=== PATIENT | male | born 1950 | race Caucasian/White ===

== ENCOUNTER 2021-12-23 07:42 | Observation (INO) ==
--- NOTE | 2021-11-18 15:50 | PAT Medication Instructions ---
Medication Instructions Date of Service November 18, 2021 Home Medications aspirin 81 mg tablet,delayed release 81 mg PO QAM metoprolol tartrate 25 mg tablet 12.5 mg PO BID multivitamin with minerals 1 cap PO QAM simvastatin 40 mg tablet 40 mg PO HS Cbd Pill 15 mg PO BID alpha lipoic acid 600 mg capsule 600 mg PO QAM cyanocobalamin (vitamin B-12) 1,000 mcg tablet (Vitamin B-12) 5,000 mcg PO QAM finasteride 5 mg tablet 5 mg PO QAM STOP taking 2 weeks before surgery (or as soon as possible if surgery is within 2 weeks) alpha lipoic acid 600 mg capsule 600 mg PO QAM DO NOT take the morning of surgery multivitamin with minerals 1 cap PO QAM Cbd Pill 15 mg PO BID cyanocobalamin (vitamin B-12) 1,000 mcg tablet (Vitamin B-12) 5,000 mcg PO QAM Take morning of surgery With a small sip of water, OTHERWISE NOTHING TO EAT OR DRINK AFTER MIDNIGHT: aspirin 81 mg tablet,delayed release 81 mg PO QAM (continue as normal unless told otherwise by surgeon) metoprolol tartrate 25 mg tablet 12.5 mg PO BID finasteride 5 mg tablet 5 mg PO QAM Take evening before surgery metoprolol tartrate 25 mg tablet 12.5 mg PO BID simvastatin 40 mg tablet 40 mg PO HS Cbd Pill 15 mg PO BID Other Notes If you have any questions please call us at [phone] or [phone] or [phone] or [phone]
--- NOTE | 2021-11-23 10:26 | Anesthesiology Consultation ---
Date of Service November 23, 2021 Assessment & Plan (1) Encounter for pre-operative examination: COVID screening: Per assessment on 11/23: No known COVID-19 positive contacts or current COVID-19 related symptoms. Travel screen negative. Patient vaccinated. Surgeon arranging preop COVID testing. Awaiting results. Chart Review Chart Review: Acceptable Risk for Surgery and Patient seen in Pre Admission Testing Teaching & Discussion Pre-Anesthesia Teaching/Discussion Notes: Instructed NPO after midnight before surgery,except medications with 15 cc of water. Medication instructions provided according to the PAT guidelines. History Surgery Operation Date: 12/23/21 12:05 Proposed Procedures p Left Total Knee Arthroplasty - Myke Wilkerson DO Height/Weight Height: 6 ft 2 in Weight: 133.4 kg Allergies Allergy/AdvReac Type Severity Reaction Status Date / Time No Known Allergies Allergy Mild Verified 11/18/21 13:40 Medications Home Medications Medication Instructions Recorded Confirmed Last Taken aspirin 81 mg tablet,delayed 81 mg PO QAM #0 04/20/14 11/18/21 05/03/21 release metoprolol tartrate 25 mg tablet 12.5 mg PO BID #0 tab 04/20/14 11/18/21 05/03/21 multivitamin with minerals 1 cap PO QAM #0 04/20/14 11/18/21 05/03/21 simvastatin 40 mg tablet 40 mg PO HS #0 tab 04/20/14 11/18/21 05/02/21 Cbd Pill 15 mg PO BID 11/18/21 11/18/21 Unknown alpha lipoic acid 600 mg capsule 600 mg PO QAM 11/18/21 11/18/21 Unknown cyanocobalamin (vitamin B-12) 5,000 mcg PO QAM 11/18/21 11/18/21 Unknown 1,000 mcg tablet (Vitamin B-12) finasteride 5 mg tablet 5 mg PO QAM 11/18/21 11/18/21 Unknown Past Medical History Medical History Anxiety BPH (benign prostatic hyperplasia) Dyslipidemia History of COVID-19 08/2021 (> 90 days ago per pt) > self test History of kidney stones Hypertension Neuropathy Bottom of feet r/t previous surgeries Osteoarthritis Exercise / Class Metabolic Activity III < 4 Walking/Shop/Light housework (one FS (no CP, no SOB) > limitations in functional status 2/2 knee pain) Past Family History Family History Daughter Family history of cancer Other Hypertension Stroke Past Surgical History Surgical History History of colonoscopy History of shoulder surgery RIGHT X2 History of total right knee replacement History of urologic surgery BLADDER STONES AND PROSTATE STONES AND REMOVED PART OF PROSTATE JUN 2021 Past Anesthesia History No Hx of Anesthesia Complications and No Family Hx of Anesthesia Complications History of PONV No Hx of PONV and No Hx of Motion Sickness Social History Smoking Status: Never smoker Do You Dip or Chew Tobacco: No Hx Alcohol Use: Yes Alcohol type: beer, wine and hard liquor alcohol intake frequency: 0-2 drinks per day (1-2 drinks/day) substance use type: does not use Review of Systems Patient denies chest pain, shortness of breath, fever, chills, cough, wheezing, palpitations. Physical Exam Vital Signs VITALS BP 155/82 P 49 (patient reports chronic bradycardia on beta bhavik, asymptomatic) TEMP 98.1 SP02 95%RA RESP 16 PHYSICAL Full cervical extension range of motion. Full TMJ range of motion. TMD 3 finger breaths Mallampati Score 2 Dentition: intact Lungs: clear throughout to auscultation Cardiac: bradycardic rate, regular rhythm, no murmurs noted Spine: normal Carotid arteries: negative bruit Extremities: no edema Lab Results Anesthesia Preop Results Results Anesthesia Widget: WBC 7.69 K/uL (4.8-10.8) 11/23/21 Hgb 14.3 g/dL (14.0-18.0) 11/23/21 Hct 42.4 % (42-52) 11/23/21 Plt 262 K/uL (130-400) 11/23/21 Na 140 mmol/L (136-145) 11/23/21 K 4.5 mmol/L (3.5-5.1) 11/23/21 Cl 106 mmol/L (98-107) 11/23/21 CO2 30 mmol/L (21-32) 11/23/21 BUN 17 mg/dl (6-23) 11/23/21 Creat 0.70 mg/dl (0.6-1.4) 11/23/21 Glucose Level 105 mg/dl (70-99(Fasting)) H 11/23/21 PT 10.2 Seconds (9.0-12.0) 11/23/21 PTT 25.1 Seconds (21.0-31.0) 11/23/21 INR 1.0 (0.9-1.1) 11/23/21 HA1c 6.1 % (4.5-5.6) H 11/23/21 Urine Color Dark Yellow 11/23/21 Urine Appearance Cloudy (Clear) A 11/23/21 Urine pH 8.0 (4.5-7.5) H 11/23/21 Urine Specific Wrights 1.018 (1.000-1.030) 11/23/21 Urine Protein Negative (Negative) 11/23/21 Urine Glucose (UA) Negative (Negative) 11/23/21 Urine Ketones Negative (Negative) 11/23/21 Urine Blood Negative (Negative) 11/23/21 Urine Nitrite Negative (Negative) 11/23/21 Urine Bilirubin Negative (Negative) 11/23/21 Urine Urobilinogen Negative (Negative) 11/23/21 Urine Leukocyte Esterase Negative (Negative) 11/23/21 Urine WBC (Auto) 1-5 /hpf (0-5) 11/23/21 Urine RBC (Auto) 0-4 /hpf (0-4) 11/23/21 Urine Hyaline Casts (Auto) 0 /lpf (0-5) 11/23/21 Urine Epithelial Cells (Auto) 0-5 /lpf (0-5) 11/23/21 Urine Bacteria (Auto) Negative (Negative) 11/23/21 Blood Type O Positive 11/23/21 Antibody Screen NEGATIVE 11/23/21 Testing Electrocardiogram Date: 05/22/21 SB at 58bpm. RBBB. Chest X-Ray Date: 05/22/21 Findings: + NAD Stress Test Type: DSE Stress echo is negative for inducible ischemia. LVEF 55-59%. Mildly increased concentric LV wall thickness. Mild MR. 114% MPHR.
--- NOTE | 2021-12-07 10:44 | History & Physical Report ---
Date of Service December 07, 2021 date of surgery: 12/23/21 Procedure: Left Total Knee Arthroplasty Surgeon: Myke Wilkerson Assessment & Plan (1) Arthritis of knee, left: Plan: Risks and benefits of procedure discussed in detail today, patient would like to proceed with a left total knee replacement at [facility] as scheduled. will obtain medical clearance from Dr Simms prior to surgery as well as obtain PATs at [facility]. Will place on ASA 81mg po bid x 1 month post op, f/u 2 weeks post op for routine post-operative care and x-ray, sooner if having any problems. he had done OPPT after his other knee in 2008 and would like to do OPPT at [place] again this time. he does live alone, but states his son lives near by and can assist him. At this point in time, has failed conservative measures and would like to proceed with surgical intervention. The risks and benefits have been discussed including, but not limited to, risk of infection, nerve injury, stiffness, loss of motion, failure to improve, etc. Reasonable outcomes and options of treatment were discussed. An explanation of appropriate alternatives to the procedure that may be advantageous were discussed and their risks and benefits, as well as the risks and benefits of not proceeding with treatment. I offered to answer any additional inquiries concerning the treatment involved. All the patient's questions were answered. The patient is agreeable, understanding of the treatment plan and alternatives, and wishes to proceed with the treatment plan. History of Present Illness Chief Complaint: left knee pain Primary Care Provider: John Simms MD Jona is a 71 year old male who complains of left knee pain, presents for pre- op evaluation prior to a left total knee replacement by Dr Wilkerson at [facility]. He complains of pain, decreased range of motion, instability and stiffness in his left knee. Currently the patient states that the symptoms are moderate-severe and rated as 7/10. The pain is described as aching, sharp and throbbing. His symptoms are aggravated by ascending stairs, daily activities, first steps while awake walking. Prior NSAIDs include IBU and Aleve. He has been treated with previous cortisone injections in the past without much relief. Allergies Allergy/AdvReac Type Severity Reaction Status Date / Time No Known Allergies Allergy Mild Verified 11/18/21 13:40 Home Medications Medication Instructions Recorded Confirmed Type aspirin 81 mg tablet,delayed 81 mg PO QAM #0 04/20/14 11/18/21 History release metoprolol tartrate 25 mg tablet 12.5 mg PO BID #0 tab 04/20/14 11/18/21 History multivitamin with minerals 1 cap PO QAM #0 04/20/14 11/18/21 History simvastatin 40 mg tablet 40 mg PO HS #0 tab 04/20/14 11/18/21 History Cbd Pill 15 mg PO BID 11/18/21 11/18/21 History alpha lipoic acid 600 mg capsule 600 mg PO QAM 11/18/21 11/18/21 History cyanocobalamin (vitamin B-12) 5,000 mcg PO QAM 11/18/21 11/18/21 History 1,000 mcg tablet (Vitamin B-12) finasteride 5 mg tablet 5 mg PO QAM 11/18/21 11/18/21 History Past Med/Surg History Medical History Anxiety BPH (benign prostatic hyperplasia) Dyslipidemia History of COVID-19 08/2021 (> 90 days ago per pt) > self test History of kidney stones Hypertension Neuropathy Bottom of feet r/t previous surgeries Osteoarthritis Surgical History History of colonoscopy History of shoulder surgery RIGHT X2 History of total right knee replacement History of urologic surgery BLADDER STONES AND PROSTATE STONES AND REMOVED PART OF PROSTATE JUN 2021 Family History Daughter Family history of cancer Other Hypertension Stroke Social History Smoking Status: Never smoker Hx Alcohol Use: Yes Alcohol type: beer, wine and hard liquor Preferred Language: Welsh Communication Ability: Effective Press Writer Required: No Beliefs That Will Affect Care: None Current Living Situation: Alone Feels Safe at Home: Yes Assistive Devices: Hearing Aid - Bilateral Review of Systems Review of Systems: All systems reviewed & are unremarkable except as noted in HPI & below Constitutional: no fever, no chills and no sweats Respiratory: no cough and no dyspnea Cardiovascular: no chest pain, no dyspnea and no orthopnea Gastrointestinal: no abdominal pain, no nausea and no vomiting Musculoskeletal: as per Subjective / HPI Physical Exam Physical Exam: HT: 6ft 2in WT: 133.4kg Constitutional: WD/WN, vitals as above no acute distress Respiratory: normal respiratory effort, lungs clear to auscultation no respiratory distress, no labored breathing and does not use accessory muscles Cardiovascular: RRR, no murmur, no edema Gastrointestinal (Abdomen): normal bowel sounds, soft, nontender, no hepatosplenomegaly Musculoskeletal: Knee: + knee abnormal to inspection (left knee: ), + effusion (+1 effusion), + limited ROM of knee (ROM 0/3/110), + knee ROM with crepitation, + joint line tenderness (medial joint line) and + Sridevi's sign positive; no deformity, no skin erythema, no ecchymosis, no valgus laxity, no varus laxity, anterior drawer test negative, Fátima's sign negative and pivot shift test negative Results & Data Results & Data ([facility]) Diagnostic Findings Left Knee X-ray: left knee series confirm advanced degenerative changes to the left knee, greates t medial compartments and patellofemoral joint, showing joint space narrowing, osteophyte formation and subchondral sclerosis. no acute bony pathology noted.
[~2021-12-23 07:42] MED LIST: ACETAMINOPHEN 500 MG TAB PO SCH; BUPIVACAINE 0.25% 30 ML VIAL ONE; BUPIVACAINE 0.5 % 5 MG/1 ML PF 10ML VIAL ONE; CeleBREX 200 MG CAP PO SCH; FAMOTIDINE 20 MG TAB PO SCH; LR 500ML BOLUS, THEN 15ML/HR IV SCH; METOCLOPRAMIDE HCL 10 MG TABLET PO SCH; ROPIVACAINE 0.5% HCL/PF 150 MG, BUPIVACAINE 0.75% MPF 20 ML, EPINEPHrine 30MG/30ML (OR ... INSTIL SCH; TRANEXAMIC ACID 1,000 MG **IV Intra-op IV SCH; TRANEXAMIC ACID 1,000 MG **IV Pre-op IV SCH; ceFAZolin 2000MG 2,000 MG/15 ML SYR IV SCH; dexAMETHasone 4 MG TAB PO SCH; oxyCODONE HCL 10 MG TABCR (OxyCONTIN) PO SCH
[2021-12-23] MEDS: GABAPENTIN 300 MG CAP PO SCH ×2 (08:32→08:41)
--- NOTE | 2021-12-23 08:46 | History & Physical Bridge Note ---
Date of Service December 23, 2021 History & Physical Bridge Note I have examined the patient, reviewed the History & Physical and in the interval since the performance of the History & Physical I have noted the following changes of clinical significance: no changes noted
[2021-12-23] MEDS ORDERED: ATROPINE SULFATE 0.1 MG/ML 10ML SYR IV PRN (09:08)
[2021-12-23] MEDS ORDERED: ePHEDrine sulfate 50 MG/ML AMP IV PRN (09:08)
[2021-12-23] MEDS ORDERED: ONDANSETRON INJ 2 MG/ML 2 ML VIAL IV PRN ×2 (09:08→14:38)
[2021-12-23] MEDS ORDERED: fentaNYL citrate 100 MCG/2 ML VIAL IV PRN (09:08)
[2021-12-23] MEDS ORDERED: fentaNYL citrate 100 MCG/2 ML VIAL ONE (09:09)
[2021-12-23] MEDS ORDERED: MIDAZOLAM HCL 1 MG/ML 2ML VIAL ONE (09:09)
[2021-12-23] MEDS ORDERED: ORTHO JOINT ANESTHETIC ONE (10:30)
[2021-12-23] MEDS ORDERED: ONDANSETRON INJ 2 MG/ML 2 ML VIAL ONE (11:25)
[2021-12-23] MEDS ORDERED: PROPOFOL IV EMULSION 10 MG/ML 20 ML VIAL IV ONE ×2 (11:25→12:01)
--- NOTE | 2021-12-23 12:29 | Operative Report ---
Post Operative Report Pre & Post Diagnosis Operation Date: 12/23/21 10:30 Pre-Op Diagnosis: Left Knee Osteoarthritis Post-Op Diagnosis: Left Knee Osteoarthritis I identified the patient and participated in the time-out.: Yes Procedure Operation Date: 12/23/21 10:30 Actual Procedures p Left Total Knee Arthroplasty(Left) utilizing [employer] persona size femur 12 tibia each polyeighteen medial constrained patella 34 oval Myke Wilkerson DO Surgeon Myke Wilkerson DO School Business Manager TOMMIE Raygoza Estimated Blood Loss 5 Findings Consistent with Post-Op Diagnosis Patient presents with severe end-stage tricompartmental degenerative joint disease left knee varus alignment eburnated [id number] marginal osteophytes subchondral sclerosis with subchondral cystic changes and moderate to large effusion Specimens Bone and cartilage Drains Medium bore Hemovac Anesthesia Type MAC Spinal Regional Complications none Disposition Accompanied Patient To Recovery: No Disposition: Recovery Room Indications Patient presents with ongoing complaints of pain about the left knee no response to conservative management occluding physical therapy anti-inflammatories relative rest activity modification corticosteroid injection viscosupplementation the above intraoperative findings were noted Description of Procedure After proper prepping and draping of the left lower extremity anterior midline incision was made over the region of the extensor extensor mechanism after meticulous hemostasis was obtained and maintained in subcutaneous tissues a medial parapatellar incision was made The patella was subluxed lateralward the medial lateral gutter were cleaned from any hypertrophic synovitis and scar tissue of the distal femoral block was placed and the distal femoral osteotomy cut was made subsequently the chamfers anterior and posterior osteotomy cuts were made utilizing the 4-in-1 block the tibia was subsequently subluxed anteriorward medial and ateral meniscal remnants were excised in their entirety remnants of the anterior and posterior cruciate ligaments were excised in their entirety excellent exposure of the proximal tibia was obtained the tibial osteotomy guide was placed on the proximal tibial osteotomy cut was made once again the knee was irrigated with copious amounts of sterile saline solution the patella was subsequently everted lateralward thickened scar tissue around the patella was removed the patella was subsequently cut utilizing a freehand technique and was drilled prepared for final preparation and placement of patella socially flexion-extension gaps were checked and the equal and symmetric trials were placed to the appropriate femoral and tibial trials with poly-spacer being placed for equal flexion and extension gaps and full range of motion including extension to 0 and flexion to 140 the trial components after having been taken to recovery range of motion was subsequently removed meticulous hemostasis was obtained and maintained subsequently a knee block injection of joint cocktail including ropivacaine 0.5% 150 mg. Bupivacaine 0.5% epinephrine 1-200,030 mL's toradol 30 mg dexamethasone 4 mg ketamine 10 mg clonidine 100 micrograms normal saline solution 30 mg was infiltrated into the soft tissues of the posterior knee medial lateral gutters and periosteal synovium special attention was paid to protect neurovascular structures at all times subsequently trial components having been removed the knee was irrigated with sterile saline solution. debris was removed the proximal tibia was subsequently prepared and was made ready for the placement of the tibial component tibial component was also cemented and tamped into position the femoral component was subsequently placed and cemented in the position the patellar component was subsequently cemented in position because hemostasis once again obtained and maintained wound having been thoroughly irrigated with debridement and debridement lavage was performed as well as a medial parapatellar incision closed with #1 Vicryl in interrupted fashion subcutaneous was closed with #2 Vicryl skin was closed with skin clips. PA-C was necessary for prepping and drapping as well as wound closure of deep fascia Sub cutaneous tissue and skin and was necessary for the case. A sterile compressive dressing was placed patient was taken to recovery in stable condition of report dictated by Rock I attest to the content of the Intraoperative Record and any orders documented therein. Any exceptions are noted below.Due to the complex nature of the procedure, the entire surgery was performed with the operational assistance of TOMMIE Raygoza. The carpenter assistant installer, under direct supervision, was involved in the actual performance of all aspects of the surgical procedure including hemostasis, tissue retraction and incision, instrument management, patient positioning, and wound closure. I attest to the content of the Intraoperative Record and any orders documented therein. Any exceptions are noted below.
--- NOTE | 2021-12-23 14:11 | Anesthesiology Progress Note ---
Date of Service December 23, 2021 Anesthesia Post Procedure Vital Signs Vital Signs: Temp Pulse Pulse Resp BP Pulse Ox 12/23/21 13:50 49 L 12 102/65 95 12/23/21 13:40 49 L 14 115/65 95 12/23/21 13:30 48 L 17 112/63 94 12/23/21 13:20 53 L 23 118/63 90 12/23/21 13:10 51 L 20 101/71 94 12/23/21 13:04 36.2 C L 71 19 121/72 96 12/23/21 08:19 36.5 C 47 L 18 159/91 H 95 Transfer of Care Handoff Completed per policy Notes Mental Status: alert / awake / arousable and participated in evaluation Patient Amnestic to Procedure: Yes Nausea / Vomiting: adequately controlled Pain: adequately controlled Airway Patency, RR, SpO2: stable & adequate BP & HR: stable & adequate Hydration State: stable & adequate Neuraxial Anesthesia: was administered and sensory block is resolving Anesthetic Complications: no major complications apparent and Pt Satisfied with anesthetic care
--- NOTE | 2021-12-23 14:26 | XRay Report ---
XR knee LT 1 or 2V routine CLINICAL HISTORY: Surgical Post Op. Status post total knee replacement COMPARISON STUDY: No previous studies for comparison. TECHNIQUE: 2 left knee views FINDINGS: The patient is status post total knee replacement. The prosthetic components are in anatomi c alignment with no acute abnormality seen. Air is present within the soft tissues from the procedure . IMPRESSION: 1. Status post total knee replacement. ACT 112: Negative or not required by law. Electronically signed by: Amos Ferguson M.D. 12/23/2021 2:23 PM
[2021-12-23] MEDS ORDERED: bisacodyL 10 MG SUPP PR PRN (14:38)
[2021-12-23] MEDS ORDERED: METOCLOPRAMIDE HCL INJ 5 MG/ML 2 ML VIAL IV PRN (14:38)
[2021-12-23] MEDS ORDERED: oxyCODONE HCL IR 5 MG TAB (IMMEDIATE RELEASE) PO PRN (14:38)
[2021-12-23] MEDS ORDERED: MAGNESIUM HYDROXIDE SUSP 30 ML UDC PO PRN (14:38)
[2021-12-23] MEDS ORDERED: diphenhydrAMINE Capsule 25 MG CAP PO PRN (14:38)
[2021-12-23] MEDS ORDERED: HYDROmorphone INJ 1 MG/ML SYRINGE IV PRN (14:38)
[2021-12-23] MEDS ORDERED: NALOXONE HCL 0.4 MG/1 ML VIAL/CARP IV PRN (14:38)
[2021-12-23] MEDS: KETOROLAC TROMETHAMINE 15 MG/ML VIAL IV SCH ×2 (16:30→21:17)
[2021-12-23] MEDS: ACETAMINOPHEN 500 MG TAB PO SCH ×2 (16:31→21:16)
[2021-12-23] MEDS: SODIUM CHLORIDE 0.9% 1000ML 1,000 ML IV SCH (16:31)
--- NOTE | 2021-12-23 17:01 | Consultation ---
Date of Consultation December 23, 2021 Assessment & Plan (1) Arthritis of knee, left: (2) Hypertension: (3) Dyslipidemia: Left knee arthritis Status post left total knee arthroplasty by Dr. Wilkerson, POD#0 EBL 5ml tolerated procedure well Pain/wound management per orthopedics Activity and therapy as directed by orthopedics Encourage incentive spirometry, monitor hemoglobin HTN BP controlled on metoprolol, currently 118 systolic HLD Continue statin T2DM A1c 6.5 preoperatively Encourage lifestyle and diet modifications Monitor fasting blood sugar BPH Continue finasteride DVT prophylaxis: ASA twice daily per orthopedics Full code PCP: Demi Dispo: per primary Patient was seen and evaluated in collaboration with, Dr. Bunch, please see addendum Thank you for this consultation. We will follow the patient with you during their hospital stay. You can reach a member of the [facility] Hospitalist Team 28/02 via hospitalist role on tiger text. Supervising Physician Co-Signing Physician Notes Patient seen and examined History notable for 71year old man with hypertension, prediabetes, BPH who had elective left TKA today. Patient reports no pain at this time. Exam is only notable for dressing around Left knee with drain in situ. Check CBC in AM Continue home metoprolol, finasteride, simvastatin Defer pain control and DVT ppx to Primary Surgical team Agree with other plans as detailed by Farrah Valdovinos PA-C History of Present Illness Requesting Physician: Dr. Wilkerson Reason for Consultation: Postop medical management Attending Physician: Myke Wilkerson DO History of Present Illness This is a 71-year-old male who has significant past medical history of HTN, HLD, incomplete right bundle branch block, BPH, prediabetes who presents for elective left total knee arthroplasty. He tolerated the procedure well and had EBL of 5 mL. Currently he states, "I feel great." He states he had his right knee replaced back in 2008 so he, "knows the drill." Postoperatively he denies any fever, chills, sweats, lightheadedness, dizziness, chest pain, shortness of breath, nausea, vomiting, abdominal pain, changes bowel or urinary habits. He has since been able to urinate. He tolerated a turkey sandwich for lunch. He does have history of hypertension for which he takes metoprolol twice daily for. His last dose was this morning. He did have an elevated blood pressure around 1510 today at 164/70. During my evaluation it is systolically 118. During preop evaluation he did have an A1c on 11/23/2021 which revealed an A1c of 6.5. He also is history of hyperlipidemia controlled on statin therapy. Preop testing was reviewed and it does appear patient underwent a dobutamine stress echo on 09/06/2019 which revealed an EF of 55 to 59%, mild mitral regurg, negative for inducible ischemia. Allergies Allergy/AdvReac Type Severity Reaction Status Date / Time No Known Allergies Allergy Mild Verified 12/23/21 08:12 Home Medications Medication Instructions Recorded Confirmed Type aspirin 81 mg tablet,delayed 81 mg PO QAM #0 04/20/14 12/23/21 History release metoprolol tartrate 25 mg tablet 12.5 mg PO BID #0 tab 04/20/14 12/23/21 History multivitamin with minerals 1 cap PO QAM #0 04/20/14 12/23/21 History simvastatin 40 mg tablet 40 mg PO HS #0 tab 04/20/14 12/23/21 History Cbd Pill 15 mg PO BID 11/18/21 12/23/21 History alpha lipoic acid 600 mg capsule 600 mg PO QAM 11/18/21 12/23/21 History cyanocobalamin (vitamin B-12) 5,000 mcg PO QAM 11/18/21 12/23/21 History 1,000 mcg tablet (Vitamin B-12) finasteride 5 mg tablet (Proscar) 5 mg PO QAM 11/18/21 12/23/21 History acetaminophen 500 mg tablet 1,000 mg PO Q8 21 Days #126 tab 12/23/21 Rx (Tylenol Extra Strength) aspirin 81 mg tablet,delayed 81 mg PO BID 30 Days #60 tab 12/23/21 Rx release cefadroxil 500 mg capsule 500 mg PO BID 14 Days #28 cap 12/23/21 Rx celecoxib 200 mg capsule (Celebrex) 200 mg PO BID 30 Days #60 cap 12/23/21 Rx docusate sodium 100 mg capsule 100 mg PO BID 10 Days #20 cap 12/23/21 Rx oxycodone 5 mg tablet 5 - 10 mg PO Q6H PRN #30 tab 12/23/21 Rx Patient History Medical History (Updated 12/23/21 @ 17:13 by Farrah Valdovinos PA-C) Anxiety BPH (benign prostatic hyperplasia) Dyslipidemia History of COVID-19 08/2021 (> 90 days ago per pt) > self test History of kidney stones Hypertension Neuropathy Bottom of feet r/t previous surgeries Osteoarthritis Surgical History History of colonoscopy History of shoulder surgery RIGHT X2 History of total right knee replacement History of urologic surgery BLADDER STONES AND PROSTATE STONES AND REMOVED PART OF PROSTATE JUN 2021 Family History Daughter Family history of cancer Other Hypertension Stroke Social History Smoking Status: Never smoker Do You Dip or Chew Tobacco: No; Hx Alcohol Use: Yes Alcohol type: beer, wine and hard liquor Preferred Language: Greenlandic Communication Ability: Effective Diesel Engineer Required: No Beliefs That Will Affect Care: None marital status: / Current Living Situation: Alone How many Children do You have: 1 Other Information That Helps Us Care for You: No Feels Safe at Home: Yes Assistive Devices: None Review of Systems Review of Systems: All systems reviewed & are unremarkable except as noted in HPI & below Physical Exam Physical Exam: Constitutional: WD/WN, M, vitals as above, NAD, sitting up in bed, pleasant, conversing easily Head: Normocephalic, Atraumatic Eyes: PERRL, conjunctivae normal, anicteric sclerae ENMT: external ear and nose normal, oropharynx normal Neck: trachea midline, no thyromegaly normal visual inspection Respiratory: normal respiratory effort, lungs clear to auscultation, no wheeze, rales, rhonchi. Normal insp/exp effort, no accessory muscle use Cardiovascular: RRR, no murmur, no edema Vessels: no JVD or carotid bruit Chest: normal inspection of chest Abdomen: normal bowel sounds, soft, nontender, no hepatosplenomegaly Musculoskeletal: no cyanosis or clubbing, AROm x4, L TKA dressing CDI, NVI distally, hemovac in place Skin: no rashes, warm and dry normal turgor Neurologic: PERRL, EOMI, accommodation nl, no face palsy, no dysarthria CN's II-XI intact bilaterally and moves all extremities Psychiatric: A+Ox3, euthymic affect Lymphatic: no cervical or axillary lymphadenopathy : deferred Results & Data ([facility]) Vital Signs (Past 12 Hours) Vital Signs Temp Pulse Pulse Resp BP Pulse Ox 12/23/21 15:10 58 L 24 164/70 H 96 12/23/21 14:55 65 21 118/74 95 12/23/21 14:40 58 L 18 132/61 95 12/23/21 14:25 74 18 116/64 94 12/23/21 14:10 36.3 C L 52 L 23 109/61 96 12/23/21 14:00 49 L 13 105/61 95 12/23/21 13:50 49 L 12 102/65 95 12/23/21 13:40 49 L 14 115/65 95 12/23/21 13:30 48 L 17 112/63 94 12/23/21 13:20 53 L 23 118/63 90 12/23/21 13:10 51 L 20 101/71 94 12/23/21 13:04 36.2 C L 71 19 121/72 96 12/23/21 08:19 36.5 C 47 L 18 159/91 H 95 Laboratory Results Preoperative lab work on 11/23/2021 A1c 6.1 WBC 7.69 H&H 14.3 and 42.4 Platelet 262 Creatinine 0.7 Diagnostic Findings Knee X-Ray 12/23/21 13:07 XR knee LT 1 or 2V routine CLINICAL HISTORY: Surgical Post Op. Status post total knee replacement COMPARISON STUDY: No previous studies for comparison. TECHNIQUE: 2 left knee views FINDINGS: The patient is status post total knee replacement. The prosthetic components are in anatomic alignment with no acute abnormality seen. Air is present within the soft tissues from the procedure. IMPRESSION: 1. Status post total knee replacement. ACT 112: Negative or not required by law. Electronically signed by: Amos Ferguson M.D. 12/23/2021 2:23 PM Preoperative chest x-ray on 05/22/2021 no acute cardiopulmonary process Medications Administered Current Inpatient Medications Acetaminophen (Acetaminophen 500 Mg Tab) 1,000 mg PO Q8 [place] Stop: 01/22/22 15:14 Last Admin: 12/23/21 16:31 Dose: 1,000 mg Documented by: Aspirin (Aspirin 81 Mg Ectab) 81 mg PO BID [facility] Stop: 01/22/22 20:59 Bisacodyl (Bisacodyl 10 Mg Supp) 10 mg NM DAILY PRN PRN Reason: Constipation Stop: 01/22/22 14:37 Celecoxib (Celebrex 200 Mg Cap) 200 mg PO BID [facility] Stop: 01/23/22 20:59 Cyanocobalamin (Cyanocobalamin (B-12) 2,500 Mcg Tablet) 5,000 mcg SL QAM [facility] Stop: 01/23/22 08:59 Diphenhydramine HCl (Diphenhydramine Capsule 25 Mg Cap) 25 mg PO Q8H PRN PRN Reason: Itching Stop: 01/22/22 14:37 Docusate Sodium (Docusate Sodium 100 Mg Cap) 100 mg PO BID [facility] Stop: 01/22/22 20:59 Finasteride (Finasteride 5 Mg Tab) 5 mg PO QAM [facility] Stop: 01/23/22 08:59 Hydromorphone HCl (Hydromorphone Inj 1 Mg/Ml Syringe) 1 mg IV Q4H PRN PRN Reason: Pain Stop: 01/06/22 14:37 Sodium Chloride (Nss 1000ml) 1,000 mls @ 100 mls/hr IV .Q10H [facility] Stop: 12/24/21 06:00 Last Admin: 12/23/21 16:31 Dose: 100 mls/hr Documented by: Cefazolin Sodium (Ancef 2000mg) 2,000 mg in 15 mls @ 3.75 mls/min IV Q8H [facility]; Protocol Stop: 12/24/21 03:18 Ketorolac Tromethamine (Ketorolac Tromethamine 15 Mg/Ml Vial) 15 mg IV Q6H [facility] Stop: 12/24/21 10:01 Last Admin: 12/23/21 16:30 Dose: 15 mg Documented by: Magnesium Hydroxide (Magnesium Hydroxide Susp 30 Ml Udc) 30 ml PO Q6H PRN PRN Reason: Constipation Stop: 01/22/22 14:37 Metoclopramide HCl (Metoclopramide Hcl Inj 5 Mg/Ml 2 Ml Vial) 10 mg IV Q6H PRN PRN Reason: Nausea And Vomiting Stop: 01/22/22 14:37 Metoprolol Tartrate (Metoprolol Tartrate 25 Mg Tab) 12.5 mg PO BID [facility] Stop: 01/22/22 20:59 Multivitamins (Multivitamin Tab) 1 tab PO QAM [place] Stop: 01/23/22 08:59 Naloxone HCl (Naloxone Hcl 0.4 Mg/1 Ml Vial/Carp) 0.1 mg IV Q5M PRN PRN Reason: Oversedation/Resp Depression Stop: 01/22/22 14:37 Ondansetron HCl (Ondansetron Inj 2 Mg/Ml 2 Ml Vial) 4 mg IV Q6H PRN PRN Reason: Nausea And Vomiting Stop: 01/22/22 14:37 Oxycodone HCl (Oxycodone Hcl Ir 5 Mg Tab (Immediate Release)) 5 - 10 mg PO Q4H PRN PRN Reason: Pain or Pre PT Stop: 01/06/22 14:37 Sennosides (Senna 8.6 Mg Tab) 17.2 mg PO HS [facility] Stop: 01/22/22 20:59 Simvastatin (Simvastatin 40 Mg Tab) 40 mg PO HS [facility] Stop: 01/22/22 20:59 ECG Rate (beats per minute): 58 Rhythm: sinus bradycardia Findings: + RBBB
[2021-12-23] MEDS: METOPROLOL TARTRATE 25 MG TAB PO SCH (20:08)
[2021-12-23] MEDS: ceFAZolin 2000MG 2,000 MG/15 ML SYR IV SCH (20:09)
[2021-12-23] MEDS: ASPIRIN 81 MG ECTAB PO SCH (20:11)
[2021-12-23] MEDS: DOCUSATE SODIUM 100 MG CAP PO SCH (20:12)
[2021-12-23] MEDS ORDERED: SENNA 8.6 MG TAB PO SCH (21:00)
[2021-12-23] MEDS ORDERED: SIMVASTATIN 40 MG TAB PO SCH (21:00)
[2021-12-24] MEDS: SODIUM CHLORIDE 0.9% 1000ML 1,000 ML IV SCH (02:06)
[2021-12-24] MEDS: KETOROLAC TROMETHAMINE 15 MG/ML VIAL IV SCH ×2 (03:00→11:01)
[2021-12-24] MEDS: ceFAZolin 2000MG 2,000 MG/15 ML SYR IV SCH (03:06)
[2021-12-24] MEDS: ACETAMINOPHEN 500 MG TAB PO SCH (05:08)
--- NOTE | 2021-12-24 07:26 | Orthopedic Progress Note ---
Date of Service December 24, 2021 Assessment & Plan (1) History of total left knee replacement: Plan: POD #1 s/p Left TKA pt/ot dvt proph with DWAINE/SCD/ASA plan for d/c home with OPPT Admission and Anticipated Discharge Date Admission Date: December 23, 2021 Subjective POD #1 s/p Left TKA Review of Systems Constitutional: no fever, no chills and no sweats Respiratory: no cough and no dyspnea Cardiovascular: no chest pain and no dyspnea Gastrointestinal: no abdominal pain, no nausea and no vomiting Physical Exam Physical Exam: Vital Signs Temp Pulse Pulse Resp BP Pulse Ox 12/24/21 03:00 36.6 C 48 L 16 131/66 93 12/23/21 22:39 36.6 C 59 L 16 135/79 95 12/23/21 20:04 53 L 136/71 12/23/21 18:10 36.4 C L 61 18 123/73 93 12/23/21 17:08 53 L 16 124/71 93 12/23/21 16:10 36.5 C 57 L 16 116/76 93 12/23/21 15:10 58 L 24 164/70 H 96 12/23/21 14:55 65 21 118/74 95 12/23/21 14:40 58 L 18 132/61 95 12/23/21 14:25 74 18 116/64 94 12/23/21 14:10 36.3 C L 52 L 23 109/61 96 12/23/21 14:00 49 L 13 105/61 95 12/23/21 13:50 49 L 12 102/65 95 12/23/21 13:40 49 L 14 115/65 95 12/23/21 13:30 48 L 17 112/63 94 12/23/21 13:20 53 L 23 118/63 90 12/23/21 13:10 51 L 20 101/71 94 12/23/21 13:04 36.2 C L 71 19 121/72 96 12/23/21 08:19 36.5 C 47 L 18 159/91 H 95 Intake and Output 12/23/21 12/24/21 12/24/21 22:59 06:59 14:59 Intake Total 100 / 2558.333 958.333 / 2558.333 Output Total 50 / 525 450 / 525 Balance 50 / 2032.333 508.333 / 2032. Intake: IV 100 / 1158.333 958.333 / 1158.333 Sodium Chlorid e 0.9% 1000ML 1, 958.333 / 958.333 000 ml @ 100 m ls/hr IV .Q10H [facility] Rx#:[id number] Tranexamic Aci d / 0.7% NaCl 1, 100 / 100 000 mg In 100 ml @ 600 mls/hr IV TODAY@0600 [facility] Rx#:[id number] Output: Urine 400 / 400 Drain Output 50 / 120 50 / 120 Left Knee Hemo vac 50 / 120 50 / 120 Musculoskeletal: Left Leg: NVDI, calf SNT, negative estefani sign. DP palpable, able to wiggle toes/ankle movement without difficulty. dressing clean dry and intact. Results & Data ([facility]) Vital Signs (Past 12 Hours) Vital Signs Temp Pulse Resp BP Pulse Ox 12/24/21 03:00 36.6 C 48 L 16 131/66 93 12/23/21 22:39 36.6 C 59 L 16 135/79 95 12/23/21 20:04 53 L 136/71 Laboratory Results Laboratory Results SARS-CoV-2, RNA, NAAT NEGATIVE (NEGATIVE) 12/23/21 07:58 Impressions Knee X-Ray 12/23/21 13:07 XR knee LT 1 or 2V routine CLINICAL HISTORY: Surgical Post Op. Status post total knee replacement COMPARISON STUDY: No previous studies for comparison. TECHNIQUE: 2 left knee views FINDINGS: The patient is status post total knee replacement. The prosthetic components are in anatomic alignment with no acute abnormality seen. Air is present within the soft tissues from the procedure. IMPRESSION: 1. Status post total knee replacement. ACT 112: Negative or not required by law. Electronically signed by: Amos Ferguson M.D. 12/23/2021 2:23 PM
--- NOTE | 2021-12-24 07:38 | Discharge Summary ---
Date of Service date of discharge: December 24, 2021 date of admission: 12/23/21 Admission HPI Per Admitting Provider Jona is a 71 year old male who complains of left knee pain, presents for pre-op evaluation prior to a left total knee replacement by Dr Wilkerson at [facility]. He complains of pain, decreased range of motion, instability and stiffness in his left knee. Currently the patient states that the symptoms are moderate-severe and rated as 7/10. The pain is described as aching, sharp and throbbing. His symptoms are aggravated by ascending stairs, daily activities, first steps while awake walking. Prior NSAIDs include IBU and Aleve. He has been treated with previous cortisone injections in the past without much relief. Principal Diagnosis left knee arthritis Discharge Exam Vital Signs Temp Pulse Pulse Resp BP Pulse Ox 12/24/21 03:00 36.6 C 48 L 16 131/66 93 12/23/21 22:39 36.6 C 59 L 16 135/79 95 12/23/21 20:04 53 L 136/71 12/23/21 18:10 36.4 C L 61 18 123/73 93 12/23/21 17:08 53 L 16 124/71 93 12/23/21 16:10 36.5 C 57 L 16 116/76 93 12/23/21 15:10 58 L 24 164/70 H 96 12/23/21 14:55 65 21 118/74 95 12/23/21 14:40 58 L 18 132/61 95 12/23/21 14:25 74 18 116/64 94 12/23/21 14:10 36.3 C L 52 L 23 109/61 96 12/23/21 14:00 49 L 13 105/61 95 12/23/21 13:50 49 L 12 102/65 95 12/23/21 13:40 49 L 14 115/65 95 12/23/21 13:30 48 L 17 112/63 94 12/23/21 13:20 53 L 23 118/63 90 12/23/21 13:10 51 L 20 101/71 94 12/23/21 13:04 36.2 C L 71 19 121/72 96 12/23/21 08:19 36.5 C 47 L 18 159/91 H 95 Intake and Output 12/23/21 12/24/21 12/24/21 22:59 06:59 14:59 Intake Total 100 / 2558.333 958.333 / 2558.333 Output Total 50 / 525 450 / 525 Balance 50 / 3.333 508.333 / 3.333 Intake: IV 100 / 1158.333 958.333 / 1158.333 Sodium Chloride 0.9% 1000ML 1, 958.333 / 958.333 000 ml @ 100 mls/hr IV .Q10H [facility] Rx#:[id number] Tranexamic Acid / 0.7% NaCl 1, 100 / 100 000 mg In 100 ml @ 600 mls/hr IV TODAY@0600 [facility] Rx#:[id number] Output: Urine 400 / 400 Drain Output 50 / 120 50 / 120 Left Knee Hemovac 50 / 120 50 / 120 Constitutional WD/WN, vitals as above no acute distress Respiratory normal respiratory effort, lungs clear to auscultation no respiratory distress, no labored breathing and does not use accessory muscles Cardiovascular RRR, no murmur, no edema Gastrointestinal (Abdomen) normal bowel sounds, soft, nontender, no hepatosplenomegaly Musculoskeletal left knee: NVDI, calf SNT, negative estefani sign. DP palpable, able to wiggle toes/ankle movement without difficulty. GILDA dressing clean dry and intact Discharge Data Allergies Allergy/AdvReac Type Severity Reaction Status Date / Time No Known Allergies Allergy Mild Verified 12/23/21 08:12 Consultations 12/18/21 15:57 Consult Hospitalist Routine Procedures Performed Operation Date: 12/23/21 10:30 Actual Procedures p Left Total Knee Arthroplasty(Left) - Myke Wilkerson DO Ordered Studies 12/23/21 05:00 US - OR guided needle placemen Routine Hospital Course (1) History of total left knee replacement: POD #1 s/p Left TKA pt/ot dvt proph with DWAINE/SCD/ASA plan for d/c home with OPPT Total Time Total Time Spent Total Time Spent (In Minutes): 20 Discharge Plan Discharge Items Patient Disposition: Home - Self-Care Reason For Visit: Left Knee Osteoarthritis Discharge Diagnosis: LEFT TOTAL KNEE REPLACEMENT Activity: Per Instructions section Lifting: Wait until after follow-up appointment Weightbearing Comment: WBAT WITH WALKER Non-emergency contact: Surgeon Call non-emergency contact if: you have any medication questions, your temperature is above 101, your wound has increased redness, your wound has increased drainage and your wound pain has increased Follow-up/Referrals: John Simms MD [Primary Care Provider] - Diet: Regular Addtl Attending Provider Instructions: ACTIVITY RECOMMENDATIONS: SELF CARE INSTRUCTIONS AFTER TOTAL KNEE REPLACEMENT A. You may need to continue a physical therapy program after discharge from the hospital. There are several options available to you. Your doctor will assist you in selecting the best one for you. 1. An out-patient facility 2 to 3 times a week for therapy or home therapy. 2. Continue working on all exercises taught to you in the hospital. Your goals should be to increase bending of your knee to 90 degrees and beyond and to fully straighten your knee. B. You may progress at your own pace from walking with a walker or crutches to a cane; then to no assistive devices. C. Make walking a part of your daily routine. Be up as much as comfortable with rest periods throughout the day. Rest with leg elevation is very important. Use the ice wrap frequently for the first 3-4 weeks. D. There are no restrictions on activities. You may ride in a car, shop, participate in salesperson men's hats and all social activities. E. Wear the long elastic stockings (DWAINE hose) 20 hours a day for 2 weeks after surgery. They can be removed several times a day for laundering and for a bath. F. You may shower, no tub baths until cleared by your doctor. SPECIAL CARE INSTRUCTIONS: VERY IMPORTANT TO READ AND REVIEW A. There are a few signs you need to watch for after you are home. Call [facility] if you notice any of the followin. Increased severe knee pain. Some pain is expected especially when you exercise. 2. Increased swelling in your leg or knee; pain or swelling of the calf muscle in either lower leg. 3. Any fluid drainage from the incision. 4. Shortness of breath or chest pain. B. Please call [facility] at if you have any concerns or questions about your operation or recovery. The doctor or his nurse will return your call promptly. C. You must take antibiotics before dental work, bladder, bowel or other surgery. Your doctor will provide you with a permanent care to carry describing this precaution. IMPORTANT: * REMEMBER TO TAKE ASPIRIN, 81 MG, TWICE DAILY FOR 4 WEEKS UNLESS OTHERWISE DIRECTED. THIS IS YOUR BLOOD THINNER. * HIGH RISK PATIENTS MAY BE PRESCRIBED A STRONGER BLOOD THINNER. THIS WILL BE PROVIDED AT DISCHARGE. * CALL IF INCREASED PAIN, REDNESS, DRAINAGE OR FEVER GREATER THAT 101. * WEAR DWAINE HOSE 20 HOURS PER DAY FOR 2 WEEKS. * GILDA Dressing- This is a large suction dressing covering your incision. This will help pull any excess drainage from the wound and allow your incision to heal properly. You may shower with this if you can keep the unit outside of the shower. If any bleeding or leakage is noted please call your doctor's office. This will remain on your incision for 7 days and then should be removed . This can be done yourself or by the home nursing staff if applicable. The entire unit is disposable once removed. Once removed, keep incision clean and dry. If redness or drainage is noted, please call your surgeon. DERMABOND Prineo- This is a mesh tape dressing that is covered with glue. It should remain in place until the incision is properly healed, usually 10-14 days. This dressing is designed to naturally slough off. You may trim the excess mesh tape as it peels off. Incision may be briefly wet in a shower. Dry immediately by blotting with a clean, dry towel. Do not bath or swim until instructed by your doctor. Do not scratch, rub, or pick at the dressing. Do not apply any topical ointments or lotions until dressing is completely removed and/or instructed by your doctor. There may be a small piece of suture material at one end of your incision. Do not pull or trim this. If it is bothersome or catching on clothing, you may cover it with a band-aid. IF INCISION IS LEAKING THROUGH DRESSING, CALL THE OFFICE . FOLLOW UP VISIT: If appointment is not already scheduled: Please call [facility] to make a follow-up appointment for 2 weeks after your surgery at . Pending Studies at Discharge: No Stand-Alone Forms: My [employer], Smoking Cessation Medications and DC Order Prescriptions: New celecoxib [Celebrex] 200 mg Capsule 200 mg PO BID 30 Days Qty: 60 RF: 0 aspirin 81 mg Tablet,Delayed Release (Dr/Ec) 81 mg PO BID 30 Days Qty: 60 RF: 0 acetaminophen [Tylenol Extra Strength] 500 mg Tablet 1,000 mg PO Q8 21 Days Qty: 126 RF: 0 oxycodone 5 mg Tablet 5 - 10 mg PO Q6H PRN (Reason: pain) Qty: 30 RF: 0 docusate sodium 100 mg Capsule 100 mg PO BID 10 Days Qty: 20 RF: 0 cefadroxil 500 mg capsule 500 mg PO BID 14 Days Qty: 28 RF: 0 Continued simvastatin 40 mg Tablet 40 mg PO HS Qty: 0 RF: 0 multivitamin with minerals Capsule 1 cap PO QAM Qty: 0 RF: 0 metoprolol tartrate 25 mg Tablet 12.5 mg PO BID Qty: 0 RF: 0 cyanocobalamin (vitamin B-12) [Vitamin B-12] 1,000 mcg Tablet 5,000 mcg PO QAM RF: 0 finasteride [Proscar] 5 mg Tablet 5 mg PO QAM RF: 0 alpha lipoic acid 600 mg Capsule 600 mg PO QAM RF: 0 Cbd Pill 15 mg PO BID RF: 0 Discontinued aspirin [Aspir-81] 81 mg Tablet,Delayed Release (Dr/Ec) 81 mg PO QAM Qty: 0 RF: 0 Discharge Orders: Discharge Order (Routine); Ordered 12/24/21 Ordered By: Juan Gray Admission Data Admit Date/Time: 12/23/21 13:07 Attending Provider: Myke Wilkerson Admit Provider: Myke Wilkerson Primary Care Provider: John Simms Other Providers: Sabino Andrews
[2021-12-24] MEDS: METOPROLOL TARTRATE 25 MG TAB PO SCH (08:14)
[2021-12-24] MEDS: DOCUSATE SODIUM 100 MG CAP PO SCH (08:14)
[2021-12-24] MEDS: ASPIRIN 81 MG ECTAB PO SCH (08:16)
[2021-12-24 08:28] LABS: Hematocrit (blood only) 38.3 % (42-52); Hemoglobin 12.8 g/dL (14.0-18.0); Mean Corpuscular Hemoglobin 30.4 pg (25-34); Mean Corpuscular Hgb Conc 33.4 g/dL (32-36); Mean Platelet Volume 10.2 fL (7.4-10.4); Platelet Count 283 K/uL (130-400); RDW Coefficient of Variation 13.4 % (11.5-14.5); RDW Standard Deviation 44.3 fL (36.4-46.3); Red Blood Count 4.21 M/uL (4.7-6.1); White Blood Count 16.96 K/uL (4.8-10.8)
[2021-12-24 08:51] LABS: BUN Creatinine Ratio 33.8 (10-20); Calcium 9.3 mg/dl (8.5-10.1); Creatinine Clr Calc Pharmacy 133.7 ml/min; Est GFR (African American) 107.9 ml/min; Est GFR (Non-African American) 93.1 ml/min; Potassium 4.1 mmol/L (3.5-5.1)
[2021-12-24] MEDS ORDERED: NON-FORMULARY MEDICATION (Alpha Lipoic Acid 600 mg Capsule) PO SCH (09:00)
[2021-12-24] MEDS ORDERED: CYANOCOBALAMIN (B-12) 2,500 MCG TABLET SL SCH (09:00)
[2021-12-24] MEDS ORDERED: FINASTERIDE 5 MG TAB PO SCH (09:00)
[2021-12-24] MEDS ORDERED: MULTIVITAMIN TAB PO SCH (09:00)
[2021-12-24] MEDS ORDERED: CeleBREX 200 MG CAP PO SCH (21:00)
== END 2021-12-24 12:14 | disposition home or self-care (01) ==
LOC: ASU 07:42 → PACUINP 07:42 → 3W 15:44